=== PATIENT | male | born 1995 | race Two or more races ===

== ENCOUNTER 2023-12-14 17:15 | Emergency (ER) | payer OTHER ==
[~2023-12-14] VITALS: Ht 172.7 cm; Wt 70.3 kg
[2023-12-14] MEDS ORDERED: METOCLOPRAMIDE HCL 5 MG/ML VIAL IM STA (18:22)
[2023-12-14] MEDS ORDERED: MECLIZINE HCL 25 MG TABLET PO STA (18:23)
[2023-12-14] MEDS ORDERED: hydrOXYzine PAMOATE 50 MG CAPSULE PO STA (18:25)
[2023-12-14] MEDS ORDERED: hydrOXYzine PAMOATE 50 MG CAPSULE PO ONE (18:40)
[2023-12-14] MEDS ORDERED: MECLIZINE HCL 25 MG TABLET PO ONE (18:40)
[2023-12-14] MEDS ORDERED: METOCLOPRAMIDE HCL 5 MG/ML VIAL ONE (18:40)
== END 2023-12-14 19:58 | disposition home or self-care (01) ==
LOC: ER 17:17
DX: H81.10 Benign paroxysmal vertigo, unspecified ear (principal)